=== PATIENT | male | born 1975 | race Caucasian/White ===

== ENCOUNTER 2019-12-07 06:49 | Emergency (ER) | payer OTHER ==
[~2019-12-07] VITALS: Ht 170.2 cm; Wt 77.1 kg
[~2019-12-07 06:49] MED LIST: ACETAMINOPHEN-1 EAC1 PO; ANTIVERT25 MG PO; AZITHROMYCIN250 MG PO; BACTRIM DS TAB1 EACH PO; BENADRYL25 MG PO; CALAMINE180 ML TP; CARAFATE 1 GM TA1 G1 PO; CLEOCIN HCL150 MG PO; CLINDAMYCIN HC150 MG PO; COLCHICINE0.6 MG PO; HYDROCHLOROTH12.5 M1 PO; IBUPROFEN 800800 M1 PO; INDOMETHACIN 2525 MG PO; KEFLEX500 MG PO; KENALOG60 GM TP; LEXAPRO 10 MG T10 M1 PO; LISINOPRIL2.5 MG PO; LISINOPRIL20 MG PO; NOHOMEMEDICATIONS; ONDANSETRON HCL4 M2 PO; PREDNISONE 10 M10 M1 PO; PREDNISONE 10 M10 MG PO; PREDNISONE 20 M20 M1 PO; PREDNISONE 20 M20 MG PO; PRINIVIL10 MG PO; PRINIVIL20 M1 PO; PROPRANOLOL 20M20 M1; TRAMADOL 50 MG50 MG PO; ULTRAM 50MG TAB50 MG PO; ZANTAC 150MG T150 MG PO; ZESTRIL40 MG PO; ZOFRAN4 MG PO; ZPAK PO
[2019-12-07] MEDS ORDERED: LISINOPRIL20 MG PO (06:54)
[2019-12-07] MEDS ORDERED: OMEPRAZOLE 20 M20 M1 PO (06:54)
[2019-12-07] MEDS ORDERED: HYDROXYZINE PA100 MG PO (06:56)
--- NOTE | 2019-12-07 08:07 | EKG ---
[facility] [place] [address] ELECTROCARDIOGRAM REPORT Name: SHANTELLE GUZMAN Room #: [facility]#: [id number] Admission: 12/07/19 Attend Phys: Discharge: Date of : 79 Report #: [id number] THIS REPORT FOR: cc: ESTELA - Damari family physician/PCP ESTELA - Damari family physician/PCP Cordell Magdaleno MD [facility] THIS REPORT FOR: //name// [facility] ED Test Date: 2019-12-07 Test Time: 07:55:24 Pat Name: SHANTELLE GUZMAN Department: Room: Gender: Senior [employer] Tech: [facility] : 1975 Requested By: Michele Gupta Order Number: [id number] MD: Cordell Magdaleno Measurements Intervals [place] Rate: 74 P: 13 WA: 137 QRS: 29 QRSD: 96 T: 7 QT: 404 QTc: 449 Interpretive Statements Sinus rhythm Normal tracing No previous ECG available for comparison Electronically Signed On 12-07-2019 8:07:17 CDT by Cordell Magdaleno [email or web address] <ELECTRONICALLY SIGNED> By: Cordell Magdaleno MD, [facility] 12/07/19 [phone] Cordell Magdaleno MD, FACC /EPI
[2019-12-07 08:08] LABS: ABSOLUTE NEUTROPHILS 3.8 thou/uL (1.4-8.2); BASOPHILS 1.1 % (0.0-2.0); EOSINOPHILS 7.4 % (0.0-3.0); HEMATOCRIT 45.9 % (42.0-52.0); HEMOGLOBIN 16.2 gm/dL (14.0-18.0); MCHC 35.3 g/dL (28.0-37.0); MCV 87.9 fL (80.0-100.0); MONOCYTES 9.7 % (1.0-8.0); PLATELET COUNT 382 thou/uL (150-400); POLYS 56.8 % (36.0-66.0); RBC 5.22 mil/uL (4.50-6.00); RDW 12.6 % (10.5-14.5); WBC 6.7 thou/uL (4.0-11.0)
[2019-12-07 08:11] LABS: ANION GAP 7 mmol/L (7-16); BUN 14 mg/dL (7-18); CALCIUM 8.9 mg/dL (8.5-10.1); CHLORIDE 100 mmol/L (98-107); CO2 27 mmol/L (21-32); GLUCOSE 116 mg/dL (74-106); POTASSIUM 3.8 mmol/L (3.5-5.1); SODIUM 134 mmol/L (136-145)
[2019-12-07 08:20] LABS: LIPASE 84 U/L (73-393); TROPONIN-I <0.06 ng/mL (<0.06)
[2019-12-07 08:49] VITALS: BP 111/84
== END 2019-12-07 08:50 | disposition home or self-care (01) ==
LOC: ER 06:49
PROVIDERS: Emergency Medicine
DX: R42 Dizziness and giddiness (principal); R07.9 Chest pain, unspecified; R11.0 Nausea; I10 Essential (primary) hypertension; Z88.0 Allergy status to penicillin; Z79.899 Other long term (current) drug therapy